=== PATIENT | female | born 1980 | race African-American/Black ===

== ENCOUNTER 2020-08-26 12:41 | Emergency (ER) | payer MEDICAID, OTHER ==
[~2020-08-26] VITALS: Ht 172.7 cm; Wt 64.4 kg
[2020-08-26 12:42] VITALS: BP 130/80
--- NOTE | 2020-08-26 12:44 | NUR ---
39 y/o female biba from outside of [employer] for altered mental status. Pt awake, but not responding to questions. Shakes head "no" to pain. Pt sitting upright in bed positioned for comfort. Placed on bedside monitor. VSS medhx: unobtainable allergies: unobtainable
[2020-08-26 12:54] VITALS: BP 130/80
--- NOTE | 2020-08-26 12:54 | NUR ---
Pt discharged with stable vital signs. Pt left without discharge paperwork, and refused to sign discharge.
== END 2020-08-26 12:54 | disposition home or self-care (01) ==
LOC: MED 12:41
DX: R41.82 Altered mental status, unspecified (principal)
CPT/HCPCS: 99283

== ENCOUNTER 2020-08-26 18:19 | Emergency (ER) | payer OTHER ==
[~2020-08-26] VITALS: Ht 175.3 cm; Wt 82.6 kg
--- NOTE | 2020-08-26 18:19 | NUR ---
PATIENT BIBA ALS TO ER BED 05
[2020-08-26] MEDS ORDERED: ZIPRASIDONE MESYLATE 20 MG/ML VIAL IM ONE (18:30)
[2020-08-26 18:33] VITALS: BP 138/59
--- NOTE | 2020-08-26 18:33 | NUR ---
39 Y/O F BIBA FROM STREETS DUE TO [place]ING [place] AND LATER GOING TO [facility] [employer] [facility] AND [facility] [place]. PER EMS PT PLACED ON [address]150 DTS BY [place] [employer]. PER PD PT ALTERED AND DISRUPTIVE. PT PRESENTS UNCOOPERATIVE,GETTING OFF BED,NON VERBAL. UNABLE TO OBTAIN ALLERGIES,MEDICATION,MEDICAL HISTORY. SIDE RAIL X2.
--- NOTE | 2020-08-26 18:42 | NUR ---
PT UNCOOPERATIVE PLACED ON RESTRAINTS. CMS/ROM WNL.
--- NOTE | 2020-08-26 18:43 | NUR ---
UNABLE TO PERFORM SUICIDE SEVERITY SCALE DUE TO PT BEING UNCOOPERATIVE AND NONVERBAL.
--- NOTE | 2020-08-26 19:11 | NUR ---
REPORT GIVEN TO JUANPABLO ROSADO FOR CONTINUITY OF CARE
--- NOTE | 2020-08-26 19:18 | NUR ---
RESTRAINTS REMOVED FROM PT. PT APPEARS TO BE SLEEPING. CHEST RISES, AND FALLS. R/R EQUAL, AND UNLABORED. NO DISTRESS NOTED AT THIS TIME. SIDE RAIL X2, BED IN LOW POSITION, WILL CONTINUE TO MONITOR.
[2020-08-26 19:21] LABS: BASOPHILS % (AUTO) 0.2 % (0.0-2.0); EOSINOPHILS # (AUTO) 0.1 K/uL (0-0.4); EOSINOPHILS % (AUTO) 1.3 % (0.0-4.0); HEMATOCRIT 33.9 % (36-48); HEMOGLOBIN 11.2 g/dL (12.0-16.0); LYMPHOCYTES # (AUTO) 2.5 K/uL (2.5-16.5); LYMPHOCYTES % (AUTO) 32.9 % (20.5-51.1); MEAN CORPUSCULAR HEMOGLOBIN 30 pg (27-31); MEAN CORPUSCULAR HGB CONC 33 g/dL (33-37); MONOCYTES # (AUTO) 0.7 K/uL (0.8-1.0); MONOCYTES % (AUTO) 8.6 % (1.7-9.3); NEUTROPHILS # (AUTO) 4.3 K/uL (1.8-7.7); PLATELET COUNT (AUTO) 320 K/uL (140-450); RED BLOOD CELL COUNT(AUTO) 3.69 MIL/uL (4.20-5.40); RED CELL DISTRIBUTION WIDTH 13.5 % (11.6-13.7); WHITE BLOOD COUNT (AUTO) 7.5 K/uL (4.8-10.8)
[2020-08-26 19:33] LABS: ANION GAP 12.5 (8-16); ASPARTATE AMINOTRANSFERASE 30 U/L (15-37); CARBON DIOXIDE 25.6 mmol/L (21-32); CHLORIDE 108 mmol/L (98-107); CREATININE 0.9 mg/dL (0.6-1.3); GFR ARICAN-AMERICAN 90 mL/min (>90); GLUCOSE 94 mg/dL (74-106); POTASSIUM 4.1 mmol/L (3.5-5.1); SODIUM SERUM 142 mmol/L (136-145); TOTAL BILIRUBIN 0.4 mg/dL (0.0-1.0); UREA NITROGEN, BLOOD 9 mg/dL (7-18)
[2020-08-26 19:34] LABS: ACETAMINOPHEN < 0.5 ug/ml (10-30); SALICYLATE < 2.8 mg/dL (2.8-20.0)
--- NOTE | 2020-08-26 20:30 | NUR ---
PT APPEARS TO BE SLEEPING. CHEST RISES, AND FALLS. R/R EQUAL, AND UNLABORED. NO DISTRESS NOTED AT THIS TIME. SIDE RAIL X2, BED IN LOW POSITION, WILL CONTINUE TO MONITOR.
--- NOTE | 2020-08-26 21:05 | NUR ---
PT A&O X3, PT REQUESTED TO USE RESTROOM. CALM, COOPERATIVE DEMEANOR. REQUESTING SANDWICH, AND APPLE JUICE. PT AMBULATED TO RESTROOM WITH STEADY GAIT. UPON RETURNING FROM BATHROOM, PT CLIMBED INTO BED. ANSWERED QUESTIONS ABOUT PMH, AND SI/HI. DENIES PMH, AND SI/HI. ATE SANDWICH, LAYED BACK DOWN, CLOSED EYES, AND IS QUIETLY RESTING. R/R EQUAL, AND UNLABORED. VSS. SIDE RAIL X2, BED IN LOW POSITION, WILL CONTINUE TO MONITOR.
--- NOTE | 2020-08-26 21:23 | NUR ---
COVID NOVEL SWAB AND COVID ANTIGEN SWAB COLLECTED AND SENT TO LAB.
--- NOTE | 2020-08-27 01:20 | NUR ---
PT AROUSABLE TO NAME, BUT WHEN ASKED TO PROVIDE ORDERED URINE SAMPLE PT CLOSES EYES, AND IGNORES REQUEST. WILL TRY AGAIN IN 30 MIN. VSS, R/R EQUAL, AND UNLABORED.
--- NOTE | 2020-08-27 02:58 | NUR ---
PT IS CALM, QUIET, BUT REFUSING VS CHECK, AND TO PROVIDE URINE SAMPLE. R/R EQUAL, AND UNLABORED. NO DISTRESS NOTED. SIDE RAIL X2, BED IN LOW POSITION. WILL CONTINUE TO MONITOR.
--- NOTE | 2020-08-27 04:22 | NUR ---
PT WOKE UP, CALM, COOPERATIVE DEMEANOR. AMBULATED TO THE RESTROOM WITH STEADY GAIT. GAVE A URINE SPECIMEN, AND ALLOWED VS TO BE TAKEN. VSS, R/R EQUAL, AND UNLABORED. SIDE RAIL X2, BED IN LOW POSITION, WILL CONTINUE TO MONITOR.
--- NOTE | 2020-08-27 04:25 | NUR ---
0425 TELEPSYCH REQUEST INITIATED CONNECTID [id number]
--- NOTE | 2020-08-27 04:49 | NUR ---
PT BEING INTERVIEWED BY TELEPSYCH DOCTOR.
[2020-08-27 05:06] LABS: APPEARANCE,URINE CLEAR (CLEAR); BILIRUBIN,URINE NEGATIVE (NEGATIVE); BLOOD, URINE NEGATIVE (NEGATIVE); COLOR,URINE YELLOW (YELLOW); LEUKOCYTE ESTERASE ,URINE NEGATIVE (NEGATIVE); NITRITE, URINE NEGATIVE (NEGATIVE); PH,URINE 6.5 (5.0-9.0); UGLUCOSE NEGATIVE (NEGATIVE)
[2020-08-27 05:15] LABS: BARBITURATE, URINE NEGATIVE ng/ml (NEG <=200); BENZODIAZEPINE, URINE NEGATIVE ng/mL (NEG <=200); CANNABINOID, URINE NEGATIVE ng/mL (NEG <=50); COCAINE, URINE NEGATIVE ng/mL (NEG <=300); OPIATE, URINE NEGATIVE ng/mL (NEG <=2000); PHENCYCLIDINE SCREEN,URINE NEGATIVE ng/mL (NEG <=25)
[2020-08-27 06:28] VITALS: BP 104/69
--- NOTE | 2020-08-27 06:28 | NUR ---
Patient discharged with v/s stable. Written and verbal after care instructions given and explained. Patient alert, oriented and verbalized understanding of instructions. Ambulatory with steady gait. All questions addressed prior to discharge. ID band removed. Patient advised to follow up with PMD. Rx of Seroquel given. Patient educated on indication of medication including possible reaction and side effects. Opportunity to ask questions provided and answered.
== END 2020-08-27 06:28 | disposition home or self-care (01) ==
LOC: MED 18:19
DX: F91.1 Conduct disorder, childhood-onset type (principal); F39 Unspecified mood [affective] disorder
CPT/HCPCS: 36415; 80053; 80305; 81003; 85025; 87426; 96372; 99285; G0480; G0482; J3486; U0003

== ENCOUNTER 2020-09-25 21:47 | Emergency (ER) | payer OTHER ==
[~2020-09-25] VITALS: Ht 177.8 cm; Wt 79.4 kg
--- NOTE | 2020-09-25 21:51 | NUR ---
PT JESSE BLS. TAKEN TO BED 6
[2020-09-25 21:59] VITALS: BP 119/73
[2020-09-25] MEDS ORDERED: NACL 0.9% 1,000 ML IV ONE (22:00)
[2020-09-25] MEDS ORDERED: LORazepam 2 MG/ML VIAL IM ONE (22:05)
[2020-09-25] MEDS ORDERED: diphenhydrAMINE 50 MG/ML VIAL IM ONE (22:05)
[2020-09-25] MEDS ORDERED: HALOPERIDOL IM 5 MG/ML VIAL IM ONE (22:05)
[2020-09-25] MEDS ORDERED: HALOPERIDOL IM 5 MG/ML VIAL ONE (22:06)
[2020-09-25] MEDS ORDERED: LORazepam 2 MG/ML VIAL ONE (22:06)
[2020-09-25] MEDS ORDERED: diphenhydrAMINE 50 MG/ML VIAL ONE (22:06)
--- NOTE | 2020-09-25 22:10 | NUR ---
39 Y/O FEMALE BIBA. ACCORDING TO EMT PT WAS FOUND ON STREETS ALTERED, MUMBLING AND WALKING AROUND THEN BECAME COMBATIVE ONCE BROUGHT IN AMBULANCE. PT IS AWAKE BUT UNCOOPERATIVE. PT DOESNT RESPOND TO QUESTIONS AND HAS SOME MOMENTS OF AGITATION. PT CHANGED TO GOWN AND HOOKED TO MONITOR. HX: UNOBTAINABLE ALLERGIES: UNOBTAINABLE
[2020-09-25 22:19] LABS: BASOPHILS % (AUTO) 0.4 % (0.0-2.0); EOSINOPHILS # (AUTO) 0.1 K/uL (0-0.4); HEMATOCRIT 34.1 % (36-48); HEMOGLOBIN 11.3 g/dL (12.0-16.0); LYMPHOCYTES # (AUTO) 3.3 K/uL (2.5-16.5); LYMPHOCYTES % (AUTO) 45.4 % (20.5-51.1); MEAN CORPUSCULAR HEMOGLOBIN 31 pg (27-31); MEAN CORPUSCULAR HGB CONC 33 g/dL (33-37); MEAN CORPUSCULAR VOLUME 92.5 fL (80-94); MONOCYTES # (AUTO) 0.6 K/uL (0.8-1.0); MONOCYTES % (AUTO) 8.6 % (1.7-9.3); NEUTROPHILS # (AUTO) 3.2 K/uL (1.8-7.7); NEUTROPHILS % (AUTO) 44.6 % (42.2-75.2); PLATELET COUNT (AUTO) 280 K/uL (140-450); RED BLOOD CELL COUNT(AUTO) 3.69 MIL/uL (4.20-5.40); RED CELL DISTRIBUTION WIDTH 13.8 % (11.6-13.7); WHITE BLOOD COUNT (AUTO) 7.3 K/uL (4.8-10.8)
--- NOTE | 2020-09-25 22:23 | NUR ---
Female Operator Electronic [employer]fare accompanied female patient for assistance of clothing change and EKG w/ ASHLEE Rock .
--- NOTE | 2020-09-25 22:33 | NUR ---
Dr. Dillard examining patient.
[2020-09-25 22:40] LABS: ANION GAP 13.4 (8-16); ASPARTATE AMINOTRANSFERASE 19 U/L (15-37); CARBON DIOXIDE 25.7 mmol/L (21-32); CHLORIDE 106 mmol/L (98-107); CREATININE 0.8 mg/dL (0.6-1.3); GFR ARICAN-AMERICAN 103 mL/min (>90); GLUCOSE 113 mg/dL (74-106); POTASSIUM 4.1 mmol/L (3.5-5.1); SALICYLATE 3.4 mg/dL (2.8-20.0); SODIUM SERUM 141 mmol/L (136-145); TOTAL BILIRUBIN 0.3 mg/dL (0.0-1.0); UREA NITROGEN, BLOOD 8 mg/dL (7-18)
[2020-09-25 22:42] LABS: ACETAMINOPHEN < 0.5 ug/ml (10-30)
--- NOTE | 2020-09-25 23:30 | NUR ---
Female Integrated Marketing Specialist accompanied female patient for straight catheter insertion performed by ASHLEE Rock.
[2020-09-25 23:57] LABS: BARBITURATE, URINE NEGATIVE ng/ml (NEG <=200); BENZODIAZEPINE, URINE POSITIVE ng/mL (NEG <=200); CANNABINOID, URINE NEGATIVE ng/mL (NEG <=50); COCAINE, URINE NEGATIVE ng/mL (NEG <=300); OPIATE, URINE NEGATIVE ng/mL (NEG <=2000); PHENCYCLIDINE SCREEN,URINE NEGATIVE ng/mL (NEG <=25)
--- NOTE | 2020-09-26 03:49 | NUR ---
PT ASLEEP. VISIBLE CHEST RISE AND FALL NOTED. NO S/SX OF DISTRESS NOTED. PT KEPT COMFORTABLE. MONITORS IN PLACE. SAFETY MEASURES IN PLACE. WILL CONTINUE TO MONITOR.
[2020-09-26] MEDS ORDERED: AMMONIA AROMATIC 1 INHL INH ONE ×2 (05:56→06:09)
[2020-09-26 06:25] VITALS: BP 122/66
--- NOTE | 2020-09-26 06:25 | NUR ---
Patient discharged with v/s stable. Written and verbal after care instructions given and explained. Patient verbalized understanding. Ambulatory with steady gait. All questions addressed prior to discharge. Advised to follow up with PMD. Pt refuses to signs discharge forms.
--- NOTE | 2020-09-29 06:05 | NUR ---
late entry------ s/w primary nurse regarding end times, as follows; NS 0.9%, End time: [id number]
== END 2020-09-26 06:25 | disposition home or self-care (01) ==
LOC: MED 21:47
DX: R41.82 Altered mental status, unspecified (principal)
CPT/HCPCS: 36415; 80053; 80305; 85025; 93005; 96360; 96372; 99284; G0480; G0482; J1200; J1630; J2060; J7030